=== PATIENT | male | born 1980 | race Caucasian/White ===

== ENCOUNTER 2017-03-13 10:13 | Emergency (ER) | payer BC, OTHER ==
[~2017-03-13] VITALS: Ht 170.2 cm; Wt 85.5 kg
[2017-03-13 10:24] VITALS: Ht 170.2 cm; Wt 85.5 kg
[2017-03-13] MEDS ORDERED: LORAZEPAM 1 MG TAB PO ONE (11:00)
--- NOTE | 2017-03-13 11:06 | ERD ---
ER Documentation Chief Complaint Date/Time DATE: 03/13/17 TIME: 11:03 Chief Complaint DIZZINESS, ANXIETY STARTED 2 HOURS AGO HPI This a 36-year-old male who presents to the emergency department today complaining of some dizziness and chest pain that started earlier today. Patient states he also got blurred vision and felt numbness and tingling in his hands and feet. States he was at work when this happened 2 hours ago. States he feels better since coming to the emergency department and his dizziness has improved. States his chest pain is substernal.. States he tried to drive but returned back to work and had his coworker drive him here. States symptoms similar happened approximately 1 year ago. States he has seen his primary care doctor and has been diagnosed with high cholesterol. States that his doctor told him that he may have anxiety. States that he had a shake and some tea for breakfast per denies any fevers or chills, vomiting. Denies any drug use. ROS All systems reviewed and are negative except as per history of present illness. Medications Home Meds Active Scripts Lorazepam* (Lorazepam*) 1 Mg Tablet, 1 MG PO Q8, #5 TAB Prov:SEBASTIAN MORRIS PA-C 03/13/17 Allergies Allergies: Coded Allergies: No Known Allergy (Unverified , 03/13/17) Physical Exam Vitals Vital Signs Date Time Temp Pulse Resp B/P Pulse Ox O2 Delivery O2 Flow Rate FiO2 03/13/17 10:24 98.2 80 19 130/90 95 Physical Exam Const: NAD Head: Atraumatic Eyes: Normal Conjunctiva. PERRLA. EOM intact. ENT: Normal External Ears, Nose and Mouth. Neck: Full range of motion..~ No meningismus. Resp: Clear to auscultation bilaterally. No absent breath sounds. No wheezing. Cardio: Regular rate and rhythm, no murmurs Abd: Soft, non tender, non distended. Normal bowel sounds Skin: No petechiae or rashes Back: No midline or flank tenderness Ext: No cyanosis, or edema Neur: Awake and alert. No focal neurologic deficits. No gait ataxia. Psych: Normal Mood and Affect Results 24 hrs Laboratory Tests Test 03/13/17 11:03 Bedside Glucose 97mg/dL Current Medications Medications (Trade) Dose Ordered Sig/Jason Route PRN Reason Start Time Stop Time Status Last Admin Dose Admin Lorazepam (Ativan) 1 mg ONCE ONCE PO 03/13/17 11:00 03/13/17 11:01 DC 03/13/17 11:05 Procedures/MDM This is a 36-year-old male who presents to the emergency department today complaining of dizziness and chest pain that started a couple hours ago but has since improved. Patient also reported numbness and tingling in his hands and feet and some blurred vision at the time. On physical exam patient has no focal neurologic deficits. He is no gait ataxia. I do not feel the patient requires a head CT scan at this time. Low suspicion for acute hemorrhage, mass , abscess. He is afebrile and otherwise well-appearing. His oxygen saturation is 95% he is not tachycardic. Do not feel the patient requires a chest x-ray. Low suspicion for pneumonia, PE, abscess, pleural effusion, pneumothorax. Patient denies any drug abuse or drug use. This is the patient's first visit to the emergency department. I did obtain an EKG and Accu-Chek EKG read and interpreted by Dr. Hernandez. Rate [address] elevation. No QT prolongation. Normal sinus rhythm. Low suspicion for acute ME, PE, pericarditis Accu-Chek 97. Low suspicion for hyperglycemia or hypoglycemia. Patient had dizziness and chest pain of uncertain etiology however it appears most likely that this is an anxiety related reaction. Low suspicion for central cause of dizziness. Patient EKG was within normal limits and I do not feel that he requires further laboratory workup. Low suspicion for costochondritis, PE, abscess, pneumothorax, pleural effusion Low suspicion for sepsis, severe dehydration, serious acute bacterial infection as cause of dizziness and chest pain Patient was given Ativan here in the emergency department and he reported feeling better. He was standing up in the emergency department and stated that he felt better and okay to go home. Patient was given 5 tablets of Ativan for home. I have instructed him to only take this if his symptoms return and not to take every day. At this time the patient is stable for discharge and outpatient management. Patient should follow up with their PCP in the next 1-2 days. They may return to the emergency department sooner for any persistent or worsening of symptoms. Patient understood and agreed with the plan. Departure Diagnosis: Primary Impression: Dizzy Additional Impression: Chest pain Chest pain type: unspecified Qualified Code: R07.9 - Chest pain, unspecified type Condition: SEBASTIAN Tubbs PA-C Mar 13, 2017 11:06
[2017-03-13] MEDS ORDERED: LORA1TAB PO (11:57)
[2017-03-13 12:07] VITALS: BP 128/78; PULSE 76; RESP 18; TEMP 98.4
== END 2017-03-13 12:08 | disposition home or self-care (01) ==
LOC: FTE 10:13
DX: R42 Dizziness and giddiness (principal); R07.9 Chest pain, unspecified
CPT/HCPCS: 82962; 93005

== ENCOUNTER 2018-08-07 07:41 | Emergency (ER) | END 2018-08-07 09:12 | disposition home or self-care (01) ==